=== PATIENT | female | born 1950 | race Caucasian/White ===

== ENCOUNTER 2019-08-22 13:48 | Outpatient (CLI) | payer MEDICARE | END 2019-08-22 23:59 | disposition home or self-care (01) | LOC: CVU 13:48 | PROVIDERS: ATTEND Surgery Vascular Surgery | DX: K64.5 Perianal venous thrombosis (principal); E78.00 Pure hypercholesterolemia, unspecified; G47.30 Sleep apnea, unspecified; I82.401 Acute embolism and thrombosis of unspecified deep veins of right lower extremity; Z88.1 Allergy status to other antibiotic agents; Z88.0 Allergy status to penicillin; Z88.8 Allergy status to other drugs, medicaments and biological substances; Z80.3 Family history of malignant neoplasm of breast; Z79.899 Other long term (current) drug therapy; Z98.890 Other specified postprocedural states; I87.2 Venous insufficiency (chronic) (peripheral) | CPT/HCPCS: 93970 ==

== ENCOUNTER 2020-04-01 12:44 | Outpatient (CLI) | payer MEDICARE | END 2020-04-01 23:59 | disposition home or self-care (01) | LOC: CVU 12:44 | PROVIDERS: ATTEND Surgery Vascular Surgery | DX: I87.2 Venous insufficiency (chronic) (peripheral) (principal) | CPT/HCPCS: 93971 ==